=== PATIENT | female | born 1955 | race Caucasian/White ===

== ENCOUNTER → 2020-10-25 15:25 | Outpatient (CLI) | payer MEDICARE, SELFPAY ==
[2020-10-25 16:52] LABS: Alanine Aminotransferase 16 U/L (12-78); Albumin Level 4.3 g/dl (3.5-5.0); Albumin/Globulin Ratio 1.4 (1.1-1.8); Alkaline Phosphatase 134 U/L (38-126); Anion Gap 9.9 mEq/L (5-15); Aspartate Amino Transferase 30 U/L (14-36); Basophils % 0.7 % (0.1-2.0); Bilirubin,Total 0.4 mg/dl (0.2-1.3); Blood Urea Nitrogen 8 mg/dl (7-17); Calcium 9.5 mg/dl (8.4-10.2); Carbon Dioxide 30 mmol/L (22.0-30.0); Chloride 103 mmol/L (98-107); Chol/HDL Ratio 3.9 (1-3.5); Cholesterol 187 mg/dl (140-200); Eosinophils # 0.3 K/mm3 (0.0-0.4); Eosinophils % 4.2 % (0.1-12.0); Estimated Glomerular Filt Rate 84 ml/min (>60); GFR (African American) 102 ML/MIN (>60); Glucose 102 mg/dl (74-100); HDL Cholesterol 48 mg/dl (40-60); Hematocrit 42.1 % (37.0-47.0); Hemoglobin 13.4 g/dL (12.2-16.2); Lymphocytes # 1.7 K/mm3 (0.7-4.5); Lymphocytes % 25.9 % (10-50); Mean Corpuscular HGB Conc 31.9 g/dL (31.8-35.4); Mean Corpuscular Hemoglobin 27.9 pg (27.0-31.2); Mean Corpuscular Volume 87.6 fl (81-99); Monocytes # 0.4 K/mm3 (0.1-1.0); Monocytes % 6.7 % (1.7-9.3); Neutrophils # 4.1 K/mm3 (1.8-7.8); Neutrophils % 62.5 % (37.0-80.0); Platelet Count 345 K/mm3 (142-424); Potassium 4.9 mmoL/L (3.5-5.1); Red Cell Distribution Width 13.6 % (11.5-17.5); Sodium 138 mmol/L (136-145); Total Protein,Serum 7.3 g/dl (6.3-8.2); Triglycerides 155 mg/dl (30-150); VLDL Cholesterol 31 mg/dL (0-40); White Blood Count 6.6 K/mm3 (4.8-10.8)
[2020-10-25 17:03] LABS: Direct LDL Cholesterol 102.76 mg/dL (100-129)
[2020-10-25 17:22] LABS: Thyroid Stimulating Hormone 0.57 uIU/mL (0.465-4.68)
== END ==
PROVIDERS: Visit Provider Nurse Practitioner Family
DX: E03.9 Hypothyroidism, unspecified (principal); E78.5 Hyperlipidemia, unspecified; I10 Essential (primary) hypertension; R53.83 Other fatigue; F32.9 Major depressive disorder, single episode, unspecified
CPT/HCPCS: 80053; 80061; 84436; 84443; 85025

== ENCOUNTER → 2020-10-28 17:16 | Outpatient (CLI) | payer MEDICARE, SELFPAY ==
[2020-10-28 19:33] LABS: Hemoglobin A1C 5.9 % (4.0-6.0)
== END ==
PROVIDERS: Visit Provider Nurse Practitioner Family
DX: R73.09 Other abnormal glucose (principal)
CPT/HCPCS: 83036

== ENCOUNTER → 2020-11-04 08:41 | Outpatient (CLI) | payer MEDICARE, SELFPAY ==
--- NOTE | 2020-11-04 08:42 | MM_ITS ---
PROCEDURE: MM DIG SCREENING MAMM BI W/CAD Digital Breast Tomosynthesis Included CLINICAL INDICATION: breast ca screening There is no personal or family history of breast cancer. COMPARISON: MG MAMMO SCREENING DIGITAL TOMOSYNTHESIS BILATERAL W CAD from 05/21/2016 MG MAMMO SCREENING DIGITAL TOMOSYNTHESIS BILATERAL W CAD from 05/24/2017 outside films TECHNIQUE: Standard CC and MLO images and 3D Tomosynthesis was obtained. R2 CAD reviewed. FINDINGS: Moderate scattered fibroglandular densities are seen in both breast and the findings are bilateral and symmetrical. There are couple of benign-appearing microcalcifications left breast. There are 2 mole markers right breast and a single mole marker left breast. There is no suspicious lesion and no suspicious microcalcifications. IMPRESSION: Fibrofatty parenchyma with no suspicious lesions seen BI-RAD Category: 2 Benign Finding(s) FOLLOW-UP: 1YR 1 Year Follow-up (A letter has been sent to the patient regarding results of the study.) Dictated by: Dr. Eugenio Campuzano MD 11/22/2020 08:43 Dr. Eugenio Campuzano MD in [place] 11/22/2020 08:43
== END ==
PROVIDERS: PCP Nurse Practitioner Family; Visit Provider Nurse Practitioner Family
DX: Z12.31 Encounter for screening mammogram for malignant neoplasm of breast (principal)
CPT/HCPCS: 77063; 77067

== ENCOUNTER → 2021-03-03 17:17 | Outpatient (CLI) | payer MEDICARE, SELFPAY ==
[2021-03-03 17:53] LABS: Basophils # 0.1 K/mm3 (0-0.2); Basophils % 0.4 % (0.1-2.0); Eosinophils # 0.1 K/mm3 (0.0-0.4); Eosinophils % 0.5 % (0.1-12.0); Hematocrit 38.8 % (37.0-47.0); Hemoglobin 12.7 g/dL (12.2-16.2); Lymphocytes # 1.5 K/mm3 (0.7-4.5); Lymphocytes % 10.3 % (10-50); Mean Corpuscular HGB Conc 32.8 g/dL (31.8-35.4); Mean Corpuscular Hemoglobin 27.7 pg (27.0-31.2); Mean Corpuscular Volume 84.5 fl (81-99); Monocytes # 0.8 K/mm3 (0.1-1.0); Monocytes % 5.4 % (1.7-9.3); Neutrophils # 11.9 K/mm3 (1.8-7.8); Neutrophils % 83.4 % (37.0-80.0); Platelet Count 300 K/mm3 (142-424); Red Blood Count 4.59 M/mm3 (4.20-5.40); Red Cell Distribution Width 13.2 % (11.5-17.5); White Blood Count 14.3 K/mm3 (4.8-10.8)
[2021-03-03 18:39] LABS: Erythrocyte Sedimentation Rate 26 mm/hr (0-30)
== END ==
PROVIDERS: Visit Provider Emergency Medicine
DX: R53.83 Other fatigue (principal); F32.9 Major depressive disorder, single episode, unspecified
CPT/HCPCS: 85025; 85651

== ENCOUNTER → 2021-12-11 09:37 | Outpatient (CLI) | payer MEDICARE, SELFPAY ==
[2021-12-11 10:01] LABS: Basophils # 0.1 K/mm3 (0-0.2); Basophils % 1.7 % (0.1-2.0); Eosinophils # 0.2 K/mm3 (0.0-0.4); Eosinophils % 3.6 % (0.1-12.0); Hematocrit 40.9 % (37.0-47.0); Hemoglobin 13.4 g/dL (12.2-16.2); Lymphocytes # 1.5 K/mm3 (0.7-4.5); Mean Corpuscular HGB Conc 32.7 g/dL (31.8-35.4); Mean Corpuscular Hemoglobin 28.3 pg (27.0-31.2); Mean Corpuscular Volume 86.4 fl (81-99); Mean Platelet Volume 7.8 fl (7.4-10.4); Monocytes # 0.4 K/mm3 (0.1-1.0); Neutrophils # 4.3 K/mm3 (1.8-7.8); Neutrophils % 65.7 % (37.0-80.0); Platelet Count 317 K/mm3 (142-424); Red Blood Count 4.74 M/mm3 (4.20-5.40); Red Cell Distribution Width 13.9 % (11.5-17.5); White Blood Count 6.6 K/mm3 (4.8-10.8)
[2021-12-11 10:58] LABS: Alanine Aminotransferase 24 U/L (12-78); Albumin Level 4.3 g/dl (3.5-5.0); Albumin/Globulin Ratio 1.5 (1.1-1.8); Alkaline Phosphatase 133 U/L (38-126); Anion Gap 11.8 mEq/L (5-15); Aspartate Amino Transferase 35 U/L (14-36); Bilirubin,Total 0.7 mg/dl (0.2-1.3); Blood Urea Nitrogen 10 mg/dl (7-17); Carbon Dioxide 27 mmol/L (22.0-30.0); Chloride 102 mmol/L (98-107); Chol/HDL Ratio 3.9 (1-3.5); Cholesterol 197 mg/dl (140-200); Estimated Glomerular Filt Rate 100 ml/min (>60); GFR (African American) 121 ML/MIN (>60); Globulin 2.8 g/dL (1.3-3.2); Glucose 109 mg/dl (74-100); HDL Cholesterol 51 mg/dl (40-60); Potassium 4.8 mmoL/L (3.5-5.1); Sodium 136 mmol/L (136-145); Total Protein,Serum 7.1 g/dl (6.3-8.2); Triglycerides 197 mg/dl (30-150); VLDL Cholesterol 39 mg/dL (0-40)
[2021-12-11 11:09] LABS: Direct LDL Cholesterol 103.14 mg/dL (100-129)
[2021-12-11 11:29] LABS: Thyroid Stimulating Hormone 0.57 uIU/mL (0.465-4.68)
[2021-12-11 12:59] LABS: Hemoglobin A1C 6.3 % (4.0-6.0)
== END ==
PROVIDERS: Visit Provider Physician Assistant
DX: E03.9 Hypothyroidism, unspecified (principal); F32.9 Major depressive disorder, single episode, unspecified; I10 Essential (primary) hypertension; R73.9 Hyperglycemia, unspecified
CPT/HCPCS: 36415; 80053; 80061; 83036; 84443; 85025

== ENCOUNTER 2021-12-29 12:06 | Emergency (ER) | payer MEDICARE, SELFPAY ==
[2021-12-29 14:08] VITALS: BP 143/63; PULSE 72; RESP 20; TEMP 36.6; O2SAT 97; BMI 33.6
[2021-12-29 14:15] LABS: Apearance,Urine Clear (Clear); Bilirubin,Urine Negative (Negative); Blood, Urine Negative (Negative); Color,Urine Yellow (Yellow); Glucose,Urine (UA) Negative (Negative); Ketones,Urine Negative (Negative); PH,Urine 6.5 (5.0-8.5); Protein,Urine Negative (Negative); UTC Leukocyte Esterase,Urine Negative (Negative); UTC Nitrate,Urine Negative (Negative); Urobilinogen,Urine 0.2 EU/dl (0.2)
--- NOTE | 2021-12-29 14:29 | HMH.EDUTC ---
[facility] [place] Clinical Impression: Yeast infection, Seborrheic dermatitis of scalp Disposition: Home, Self-Care Condition on Discharge: Good Instructions: Vaginal Yeast Infection, Seborrheic Dermatitis Additional Instructions: Take the medication as directed. Follow up with your primary care physician. GO TO THE ER FOR ANY WORSENING SYMPTOMS Prescriptions: Fluconazole [Diflucan 150mg tab] 150 mg PO ONCE #1 tab Transmission Status: Received by [facility] #[id number] Ketoconazole 1 applic TP BID #100 g Transmission Status: Received by [facility] #[id number] Referrals: Svetlana Santana PA [Primary Care Provider] - Time of Disposition: 15:07 Medical Decision Making - Medical Records Medical records reviewed: No: I reviewed the patient's medical records. - Cyril Inquiry Pt receiving controlled substance: No Vital Signs: 12/29/21 14:08 12/29/21 15:09 Temperature 97.9 F 97.9 F Temperature Source Oral Pulse Rate 72 Pulse Rate [Left] 72 Respiratory Rate 20 20 Blood Pressure 143/63 H Blood Pressure [Right Arm] 143/63 H Blood Pressure Mean [Right Arm] 89 02 Sat by Pulse Oximetry 97 - Lab Data Lab results reviewed: Yes: I reviewed the patient's lab results. Lab Results 12/29/21 14:13: Urine Color Yellow, Urine Appearance Clear, Urine pH 6.5, Ur Specific [place] 1.010, Urine Protein Negative, Urine Glucose (UA) Negative, Urine Ketones Negative, Urine Blood Negative, Urine Nitrate Negative, Urine Bilirubin Negative, Urine Urobilinogen 0.2, Ur Leukocyte Esterase Negative Orders (Tests/Meds): ORDERS Category Date Time Status Urine Culture Stat Micro 12/29/21 14:13 Results [facility] [place] - General Stated complaint: possible kidney inf/ urinary pain Time Seen by Provider: 12/29/21 14:29 Mode of Arrival: Ambulatory Source of Information: Patient Limitations: No Limitations Description of Symptoms (Recalled from Triage Doc. by RN): pt c/o kidney infection that started 2 days ago. pt was able to provide a urine sample. states she also has bumps on her head that have been there for a year. HEENT Symptoms (Recalled from RN notes): No Resp Symptoms (Recalled from RN notes): No Skin Symptoms (Recalled from RN notes): No MS Symptoms (Recalled from RN notes): No Functional Status (Recalled from RN notes): wnl - History of Present Illness Provider Complaint: She states that she has been having irritation around her vaginal area and some burning when she urinates for the past 3 days. She believes she has a yeast infection. - Related Data Previous Rx's Medication Instructions Recorded cephalexin 500 mg capsule 500 mg PO BID #14 cap 03/03/21 coenzyme Q10 200 mg capsule 200 mg PO DAILY #30 cap 03/03/21 prednisone 20 mg tablet 20 mg PO BID #10 tab 03/03/21 albuterol sulfate 90 mcg/actuation See Rx Instructions .ROUTE 11/14/21 aerosol inhaler .COMPLEX #8.5 g amitriptyline 25 mg tablet See Rx Instructions .ROUTE 12/10/21 .COMPLEX #90 tab amlodipine 5 mg tablet See Rx Instructions .ROUTE 12/10/21 .COMPLEX #90 tab fluoxetine 20 mg capsule See Rx Instructions .ROUTE 12/10/21 .COMPLEX #90 cap levothyroxine 75 mcg tablet 75 mcg PO DAILY #30 tab 12/10/21 rosuvastatin 5 mg tablet See Rx Instructions .ROUTE 12/10/21 .COMPLEX #90 tab Fluconazole [Diflucan 150mg tab] 150 mg PO ONCE #1 tab 12/29/21 Ketoconazole 1 applic TP BID #100 g 12/29/21 Allergies Allergy/AdvReac Type Severity Reaction Status Date / Time Penicillins Allergy Verified 12/29/21 14:11 - Worker's Comp Is this a Worker's Comp case?: No [facility] History - Hepatitis A Screen Attestation statement:: This patient has been screened for Hepatitis A risk factors. I have reviewed the patient's past medical history: Yes Other Surgeries: Yes: No Previous Surgery Amputation: No Fractures: No - Social History Smoking Status: Former smoker Alcohol Intake: never Substance Use Type: denies us
[2021-12-29 15:09] VITALS: BP 143/63; PULSE 72; RESP 20; TEMP 36.6
== END 2021-12-29 15:15 | disposition home or self-care (01) ==
PROVIDERS: Emergency Provider Nurse Practitioner Family; PCP Physician Assistant
DX: B37.3 Candidiasis of vulva and vagina (principal); L21.9 Seborrheic dermatitis, unspecified
CPT/HCPCS: 81003; 87086; 99213; G0463

== ENCOUNTER → 2022-10-20 15:20 | Outpatient (CLI) | payer MEDICARE, SELFPAY ==
[2022-10-20 16:04] LABS: Basophils # 0.1 K/mm3 (0-0.2); Eosinophils # 0.3 K/mm3 (0.0-0.4); Eosinophils % 4.1 % (0.1-12.0); Hematocrit 41.8 % (37.0-47.0); Hemoglobin 12.9 g/dL (12.2-16.2); Lymphocytes # 1.7 K/mm3 (0.7-4.5); Lymphocytes % 25.9 % (10-50); Mean Corpuscular Hemoglobin 26.4 pg (27.0-31.2); Mean Corpuscular Volume 85.4 fl (81-99); Monocytes # 0.4 K/mm3 (0.1-1.0); Monocytes % 6.3 % (1.7-9.3); Neutrophils # 4.2 K/mm3 (1.8-7.8); Neutrophils % 62.6 % (37.0-80.0); Platelet Count 396 K/mm3 (142-424); Red Blood Count 4.89 M/mm3 (4.20-5.40); Red Cell Distribution Width 14.1 % (11.5-17.5); White Blood Count 6.7 K/mm3 (4.8-10.8)
[2022-10-20 16:10] LABS: Alanine Aminotransferase 18 U/L (12-78); Albumin Level 4.1 g/dl (3.5-5.0); Albumin/Globulin Ratio 1.6 (1.1-1.8); Alkaline Phosphatase 130 U/L (38-126); Anion Gap 7.4 mEq/L (5-15); Aspartate Amino Transferase 28 U/L (14-36); Bilirubin,Total 0.4 mg/dl (0.2-1.3); Blood Urea Nitrogen 9 mg/dl (7-17); Calcium 8.9 mg/dl (8.4-10.2); Carbon Dioxide 28 mmol/L (22.0-30.0); Chloride 105 mmol/L (98-107); Chol/HDL Ratio 3.6 (1-3.5); Cholesterol 160 mg/dl (140-200); Estimated Glomerular Filt Rate 72 ml/min (>60); GFR (African American) 87 ML/MIN (>60); Globulin 2.6 g/dL (1.3-3.2); Glucose 113 mg/dl (74-100); HDL Cholesterol 45 mg/dl (40-60); Potassium 4.4 mmoL/L (3.5-5.1); Sodium 136 mmol/L (136-145); Total Protein,Serum 6.7 g/dl (6.3-8.2); Triglycerides 140 mg/dl (30-150); VLDL Cholesterol 28 mg/dL (0-40)
[2022-10-20 16:22] LABS: Direct LDL Cholesterol 87.72 mg/dL (100-129)
[2022-10-21 19:54] LABS: Intact Parathyroid Hormone 70.8 pg/mL (7.5-53.5)
[2022-10-21 20:20] LABS: Hemoglobin A1C 6.1 % (4.0-6.0)
== END ==
PROVIDERS: PCP Physician Assistant; Visit Provider Physician Assistant
DX: E03.9 Hypothyroidism, unspecified (principal); I10 Essential (primary) hypertension; R73.09 Other abnormal glucose
CPT/HCPCS: 80053; 80061; 83036; 83970; 84443; 85025

== ENCOUNTER → 2022-10-21 07:12 | Outpatient (CLI) | payer MEDICARE, SELFPAY | PROVIDERS: PCP Physician Assistant; Visit Provider Physician Assistant | DX: E03.9 Hypothyroidism, unspecified (principal); I10 Essential (primary) hypertension; R73.09 Other abnormal glucose | CPT/HCPCS: 83036; 83970 ==

== ENCOUNTER → 2022-10-23 08:04 | Outpatient (CLI) | payer MEDICARE, SELFPAY ==
--- NOTE | 2022-10-23 08:04 | XR_ITS ---
FINAL REPORT TECHNIQUE: Bone densitometry calculations of the lumbar spine and left hip were obtained. CLINICAL HISTORY: . post menopausal screening FINDINGS: Using L1-4, the bone mineral density of the spine is 0.775 g/cm2, corresponding to T-score of -2.5. Using the left hip, the bone mineral density of the femoral neck is 0.674 g/cm2, corresponding to a T-score of -1.6. NOTE: T-score: Standard deviation compared with peak bone mass of young adult mean. *Following the recommendations of the International Society of Bone Densitometry, classification of hip BMD is based on the lower of two T-scores; total hip or femoral neck. IMPRESSION: Osteoporosis: Lowest T-score is at or below -2.5. This patient's T-score meets the World Health Organization criteria for osteoporosis. FRAX is not reported because some of the T-scores are at or below -2.5. Reviewed, Interpreted and Dictated by Curtis Carter III, MD Transcribed by Rebecca Callaway Authenticated and [facility]
--- NOTE | 2022-10-23 08:04 | MM_ITS ---
PROCEDURE INFORMATION: Exam: MG Bilateral Screening 3D Mammography Exam date and time: 10/23/2022 8:22 AM Age: 66 years old Clinical indication: Screening examination TECHNIQUE: Imaging protocol: Bilateral Screening tomosynthesis and 2D mammography including computer-aided detection (CAD) when performed. COMPARISON: 1. MG MM DIG SCREENING MAMM BI W/CAD 11/04/2020 9:23 AM 2. MG MAMMO SCREENING DIGITAL TOMOSYNTHESIS BILATERAL W CAD 05/24/2017 2:59 PM FINDINGS: MAMMOGRAPHY: Breast composition: There are scattered areas of fibroglandular density. Mass: None. Architectural distortion: None. Calcifications: No suspicious calcifications. Asymmetric density: None. Skin thickening: None. Axillary adenopathy: None. IMPRESSION: No mammographic evidence of malignancy. Annual screening is recommended unless otherwise clinically indicated. ASSESSMENT: BI-RADS Category 1: Negative
== END ==
PROVIDERS: PCP Physician Assistant; Visit Provider Physician Assistant
DX: Z12.31 Encounter for screening mammogram for malignant neoplasm of breast (principal); Z78.0 Asymptomatic menopausal state
CPT/HCPCS: 77063; 77067; 77080

== ENCOUNTER → 2023-03-19 23:11 | Outpatient (CLI) | payer MEDICARE, SELFPAY ==
[2023-03-19 20:10] LABS: Adenovirus,PCR Not Detected (NotDetected); Bordetella Pertussis Not Detected (NotDetected); Chlamydophila Pneumoniae, PCR Not Detected (NotDetected); Coronavirus 19, PCR Not Detected (NotDetected); Coronavirus 229E Not Detected (NotDetected); Coronavirus NL63 Not Detected (NotDetected); Coronavirus OC43 Not Detected (NotDetected); Coronovirus HKU1,PCR Not Detected (NotDetected); Human Metapneumovirus Not Detected (NotDetected); Influenza A, PCR Not Detected (NotDetected); Influenza AH1, 2009 Not Detected (NotDetected); Influenza AH1, PCR Not Detected (NotDetected); Influenza AH3,PCR Not Detected (NotDetected); Influenza B, PCR Not Detected (NotDetected); Mycoplasma Pneumoniae, PCR Not Detected (NotDetected); Parainfluenza 1, PCR Not Detected (NotDetected); Parainfluenza 2, PCR Not Detected (NotDetected); Parainfluenza 3, PCR Not Detected (NotDetected); Parainfluenza 4, PCR Not Detected (NotDetected); Respiratory Syncytial Virus Not Detected (NotDetected); Rhinovirus/Enterovirus Detected (NotDetected)
== END ==
PROVIDERS: PCP Nurse Practitioner Family; Visit Provider Nurse Practitioner Family
DX: J32.9 Chronic sinusitis, unspecified (principal); R06.89 Other abnormalities of breathing; R50.9 Fever, unspecified; B34.1 Enterovirus infection, unspecified
CPT/HCPCS: 87581; 87632; 87798

== ENCOUNTER 2024-02-17 10:49 | Outpatient (CLI) | payer MEDICARE, SELFPAY ==
[2024-02-17 19:01] LABS: Basophils # 0.1 K/mm3 (0-0.2); Basophils % 0.8 % (0.1-2.0); Eosinophils # 0.3 K/mm3 (0.0-0.4); Eosinophils % 3.1 % (0.1-12.0); Hematocrit 40.6 % (37.0-47.0); Hemoglobin 13.3 g/dL (12.2-16.2); Lymphocytes % 24.4 % (10-50); Mean Corpuscular HGB Conc 32.7 g/dL (31.8-35.4); Mean Corpuscular Hemoglobin 27.6 pg (27.0-31.2); Mean Corpuscular Volume 84.5 fl (81-99); Mean Platelet Volume 9.1 fl (7.4-10.4); Monocytes # 0.6 K/mm3 (0.1-1.0); Monocytes % 7.3 % (1.7-9.3); Neutrophils # 5.2 K/mm3 (1.8-7.8); Neutrophils % 64.4 % (37.0-80.0); Platelet Count 365 K/mm3 (142-424); Red Blood Count 4.81 M/mm3 (4.20-5.40); Red Cell Distribution Width 14.9 % (11.5-17.5)
[2024-02-17 19:29] LABS: Chloride 104 mmol/L (98-107); Potassium 4.3 mmoL/L (3.5-5.1); Sodium 136 mmol/L (136-145)
[2024-02-17 19:31] LABS: Alanine Aminotransferase 22 U/L (12-78); Aspartate Amino Transferase 30 U/L (14-36); Blood Urea Nitrogen 12 mg/dl (7-17); Estimated Glomerular Filt Rate 83 ml/min (>60); GFR (African American) 100 ML/MIN (>60)
[2024-02-17 19:32] LABS: Albumin Level 4.1 g/dl (3.5-5.0); Albumin/Globulin Ratio 1.5 (1.1-1.8); Alkaline Phosphatase 128 U/L (38-126); Anion Gap 12.3 mEq/L (5-15); Bilirubin,Total 0.2 mg/dl (0.2-1.3); Calcium 9.1 mg/dl (8.4-10.2); Carbon Dioxide 24 mmol/L (22.0-30.0); Chol/HDL Ratio 4.4 (1-3.5); Cholesterol 189 mg/dl (140-200); Globulin 2.8 g/dL (1.3-3.2); Glucose 116 mg/dl (74-100); HDL Cholesterol 43 mg/dl (40-60); Total Protein,Serum 6.9 g/dl (6.3-8.2); Triglycerides 246 mg/dl (30-150); VLDL Cholesterol 49 mg/dL (0-40)
[2024-02-17 19:43] LABS: Direct LDL Cholesterol 106.13 mg/dL (100-129)
[2024-02-17 20:00] LABS: Thyroid Stimulating Hormone 0.58 uIU/mL (0.465-4.68)
[2024-02-18 12:36] LABS: HIV (1&2) Antibody Rapid NON REACTIVE
[2024-02-19 07:38] LABS: HCV Ab Non Reactive (Non Reactive)
== END 2024-02-17 23:59 | disposition home or self-care (01) ==
LOC: LAB.DROPOF 02-18 10:50
PROVIDERS: PCP Physician Assistant; Visit Provider Physician Assistant
DX: M81.0 Age-related osteoporosis without current pathological fracture (principal); E34.9 Endocrine disorder, unspecified; F32.9 Major depressive disorder, single episode, unspecified; E03.9 Hypothyroidism, unspecified; I10 Essential (primary) hypertension; E78.49 Other hyperlipidemia; E66.9 Obesity, unspecified; Z68.32 Body mass index [BMI] 32.0-32.9, adult
CPT/HCPCS: 80050; 80053; 80061; 84443; 85025

== ENCOUNTER 2024-05-12 08:56 | Outpatient (CLI) | payer MEDICARE, SELFPAY ==
[2024-05-12 09:01] LABS: Microscopic, Urine URINE MICROSCOPIC (MICROSCOPIC)
[2024-05-12 09:22] LABS: Appearance,Urine CLEAR (Clear); Bilirubin,Urine Negative (Negative); Blood, Urine TRACE-I (Negative); Color,Urine YELLOW (Yellow); Glucose,Urine (UA) Negative (Negative); Ketones,Urine Negative (Negative); Leukocyte Esterase,Urine Negative (Negative); Nitrate,Urine Negative (Negative); Protein,Urine Negative (Negative); Specific Gravity, Urine <= 1.005 (1.005-1.030); Urobilinogen,Urine 0.2 EU/dl (0.2)
[2024-05-12 09:33] LABS: Bacteria,Urine Trace /lpf; RBC,Urine Occasional #/hpf (0-3)
== END 2024-05-12 23:59 | disposition home or self-care (01) ==
LOC: LAB 08:58
PROVIDERS: PCP Family Medicine; Visit Provider Family Medicine
DX: R82.90 Unspecified abnormal findings in urine (principal); R35.0 Frequency of micturition
CPT/HCPCS: 81001; 87086

== ENCOUNTER 2024-10-25 16:46 | Outpatient (CLI) | payer MEDICARE, SELFPAY ==
[2024-10-25 19:52] LABS: Basophils # 0.1 K/mm3 (0-0.2); Basophils % 0.7 % (0.1-2.0); Eosinophils # 0.4 K/mm3 (0.0-0.4); Eosinophils % 4.3 % (0.1-12.0); Hematocrit 43.2 % (37.0-47.0); Hemoglobin 13.3 g/dL (12.2-16.2); Lymphocytes # 2.3 K/mm3 (0.7-4.5); Mean Corpuscular HGB Conc 30.8 g/dL (31.8-35.4); Mean Corpuscular Hemoglobin 25.7 pg (27.0-31.2); Mean Corpuscular Volume 83.6 fl (81-99); Mean Platelet Volume 10.2 fl (7.4-10.4); Monocytes # 0.7 K/mm3 (0.1-1.0); Monocytes % 7.8 % (1.7-9.3); Platelet Count 394 K/mm3 (142-424); Red Blood Count 5.17 M/mm3 (4.20-5.40); Red Cell Distribution Width 15.4 % (11.5-17.5); White Blood Count 8.4 K/mm3 (4.8-10.8)
[2024-10-25 20:00] LABS: Creatinine,Urine Random 106 mg/dL (Not Estab.)
[2024-10-25 20:05] LABS: Microalbumin/Creatinine Ratio 9.7
[2024-10-25 20:11] LABS: Alanine Aminotransferase 23 U/L (12-78); Albumin Level 4.9 g/dl (3.5-5.0); Alkaline Phosphatase 125 U/L (38-126); Anion Gap 12.4 mEq/L (5-15); Aspartate Amino Transferase 31 U/L (14-36); Bilirubin,Total 0.4 mg/dl (0.2-1.3); Blood Urea Nitrogen 9 mg/dl (7-17); Calcium 9.4 mg/dl (8.4-10.2); Carbon Dioxide 26 mmol/L (22.0-30.0); Chloride 102 mmol/L (98-107); Chol/HDL Ratio 3.8 (1-3.5); Cholesterol 201 mg/dl (140-200); Estimated Glomerular Filt Rate 83 ml/min (>60); GFR (African American) 100 ML/MIN (>60); Globulin 2.4 g/dL (1.3-3.2); Glucose 87 mg/dl (74-100); HDL Cholesterol 53 mg/dl (40-60); Potassium 4.4 mmoL/L (3.5-5.1); Sodium 136 mmol/L (136-145); Total Protein,Serum 7.3 g/dl (6.3-8.2); Triglycerides 206 mg/dl (30-150); VLDL Cholesterol 41 mg/dL (0-40)
[2024-10-25 20:26] LABS: Direct LDL Cholesterol 102.75 mg/dL (100-129)
[2024-10-25 20:34] LABS: 25-OH Vitamin D, Total 39.4 ng/mL (30-100)
[2024-10-25 20:38] LABS: Hemoglobin A1C 6.2 % (4.0-6.0)
== END 2024-10-25 23:59 | disposition home or self-care (01) ==
LOC: LAB.DROPOF 10-26 16:47
PROVIDERS: PCP Internal Medicine; Visit Provider Internal Medicine
DX: E66.9 Obesity, unspecified (principal); R79.89 Other specified abnormal findings of blood chemistry; F32.9 Major depressive disorder, single episode, unspecified; E03.9 Hypothyroidism, unspecified; E78.49 Other hyperlipidemia; I10 Essential (primary) hypertension
CPT/HCPCS: 80053; 80061; 82043; 82306; 82570; 83036; 85025

== ENCOUNTER 2024-11-21 13:30 | Outpatient (CLI) | payer MEDICARE, SELFPAY | END 2024-11-21 23:59 | disposition home or self-care (01) | LOC: LAB.DROPOF 11-22 12:05 | PROVIDERS: PCP Nurse Practitioner; Visit Provider Nurse Practitioner | DX: R35.0 Frequency of micturition (principal); R30.0 Dysuria | CPT/HCPCS: 87086 ==

== ENCOUNTER 2024-12-11 11:21 | Outpatient (CLI) | payer MEDICARE, SELFPAY | END 2024-12-11 23:59 | disposition home or self-care (01) | LOC: LAB.DROPOF 12-12 15:15 | PROVIDERS: PCP Student in an Organized Health Care Education/Training Program; Visit Provider Student in an Organized Health Care Education/Training Program | DX: R30.0 Dysuria (principal) | CPT/HCPCS: 87086 ==

== ENCOUNTER 2025-03-26 15:17 | Outpatient (CLI) | payer MEDICARE, SELFPAY ==
--- OUTSIDE RECORDS SUMMARY | 2025-03-26 15:19 | XMS_ITS | Clinical Summary ---
Author Organization [facility] Address [address] [place] [address] Care Team Providers Care Diagrammer Name Role Phone Bianka Nolasco MD Primary Care Provide r Allergies Active Allergy Reactions Criticality Noted Date Comments Amlodipine 12/23/2015 Leg swelling Penicillins 10/03/2015 Medications aspirin 325 MG tablet Take by mouth. Active budesonide-formote rol (SYMBICORT) 160-4.5 MCG/ACT inhalerIndications :COPD with exacerbation Inhale 2 puffs 2 (Two) Times a Day. 10.2 inhaler 6 Active valACYclovir (VALTREX) 1000 MG tabletIndications: Herpes labialis take 2 tablets by mouth every 12 hours for 2 DOSES AT ONSET OF FEVER BLISTER 40 tablet 5 8 Active furosemide (LASIX) 20 MG tabletIndications: Bilateral lower extremity edema,Essential hypertension take 1 tablet by mouth once daily if needed 90 tablet 1 9 Active amLODIPine (NORVASC) 5 MG tablet TAKE 1 TABLET BY MOUTH EVERY DAY 90 tablet 1 0 Active FLUoxetine (PROzac) 20 MG capsuleIndications :Situational depression TAKE 1 CAPSULE BY MOUTH ONCE DAILY 90 capsule 1 0 Active levothyroxine (SYNTHROID, LEVOTHROID) 75 MCG tabletIndications: Adult hypothyroidism TAKE 1 TABLET BY MOUTH EVERY DAY 90 tablet 1 0 Active amitriptyline (ELAVIL) 25 MG tablet TAKE 1 TABLET BY MOUTH EVERY DAY AT BEDTIME 90 tablet 1 0 Active rosuvastatin (CRESTOR) 5 MG tabletIndications: Mixed hyperlipidemia TAKE 1 TABLET BY MOUTH ONCE DAILY 30 tablet 1 Active albuterol sulfate HFA 108 (90 Base) MCG/ACT inhalerIndications :COPD, mild INHALE 2 PUFFS EVERY 4 HOURS HOURS NEEDED FOR WHEEZING OR SHORTNESS OF BREATH 18 g 1 Active fluticasone (FLONASE) 50 MCG/ACT nasal spray SHAKE LIQUID AND USE 2 SPRAYS IN EACH NOSTRIL EVERY DAY 16 g 5 2 Active Active Problems Problem Noted Date Diagnosed Date Adult hypothyroidism 03/04/2017 Myalgia 02/17/2017 Chronic fatigue 02/17/2017 Gastroesophageal reflux disease without esophagi tis 02/17/2017 Screen for colon cancer 02/17/2017 Situational depression 07/08/2016 Overweight (BMI 25.0-29.9) 04/07/2016 Allergic conjunctivitis of both eyes 01/30/2016 COPD, mild 01/30/2016 Prediabetes 12/23/2015 Herpes labialis 10/22/2015 Mixed hyperlipidemia 10/22/2015 Essential hypertension 10/22/2015 Osteoporosis 10/22/2015 Difficulty sleeping 10/22/2015 Resolved Problems Problem Noted Date Diagnosed Date Resolved Date URI, acute 08/27/2016 02/17/2017 Pneumonia 10/22/2015 12/23/2015 Immunizations Immunization Administration Dates Next Due Fluzone Quad >6mos (Multi-dose) 05/03/2018 Shingrix 05/03/2018 Family History Medical History Relation Name Comments Heart attack Father myocardial infa rction Hypertension Father Other Father cardiac disorde r Cancer Mother malignant neopl asm Breast cancer Neg Hx Relation Name Status Comments Father Mother Social History Tobacco Use Types Packs/Day Years Used Date Smoking Tobacco: Former Cigarettes 1.5 45 0 08/30/1970 - 08/30/2015 Alcohol Use Standard Drinks/Week Comments Yes 0 (1 standard drink = 0.6 oz pur e alcohol) Social Abuse Screen Answer Date Recorded Unsafe at Home or Work/School Not on file Feels Threatened by Someone? Not on file 06/2023 Does Anyone Keep You from Co ntacting Others or Doint Things Outside the Home? Not on file 06/09/2023 Physical Sign of Abuse Present Not on file 1 Housing Stability Answer Date Recorded Current Living Arrangements Not on file 05/30 Potentially Unsafe Housing Conditions Not on kristine e 06/09/2023 Family and Community Support Answer Agustin e Recorded Help with Day-to-Day Activities Not on file 06/09/2023 Lonely or Isolated Not on file 06/09/2023 Employment Answer Date Recorded Do you want help finding or keeping work or a chloe b? Not on file 06/09/2023 Disabilities Answer Date Recorded Concentrating, Remembering, or Making Decisions Difficulty Not on file 06/09/2023 Doing Errands Independently Difficulty Not on fi le 06/09/2023 Education Answer Date Recorded Help with school or training? Not on file Preferred Language Not on file 06/09/2023 Comments Unknown Sex and Gender Information Value Date Recorded Sex Assigned at Not on file Legal Sex Female 12:37 PM EDT Gender Identity Not on file Sexual Orientation Not on file Last Filed Vital Signs Vital Sign Reading Time Taken Comments Blood Pressure 96/70 09/22/2019 8:48 AM EST Pulse 74 09/22/2019 8:48 AM EST Temperature 36.6 C (97.8 F) 09/22/2019 8:48 AM EST Respiratory Rate 16 09/22/2019 8:48 AM EST Oxygen Saturation 98% 09/22/2019 8:48 AM EST Inhaled Oxygen Concentration - - Weight 83.6 kg (184 lb 3.2 oz) 09/22/2019 8:48 A M EST Height 160 cm (5' 3 ) 09/22/2019 8:48 AM EST Body Mass Index 32.63 09/22/2019 8:48 AM EST Plan of Treatment Health Maintenance Due Date Last Done Comments TDAP/TD VACCINES (1 - Tdap) 1974 COLON CANCER SCREENING 5 YEA R SIGMOIDOSCOPY 11/22/1999 CT COLONOGRAPHY 11/22/1999 FECAL OCCULT BLOOD TEST 11/22/1999 FIT Testing (1 year) 11/22/1999 ANNUAL PHYSICAL 10/22/2015 HEPATITIS C SCREENING 10/22/2015 Pneumococcal Vaccine 50+ (2 of 2 - PCV) 12/05/2016 12/06/2015 DXA SCAN 04/24/2017 04/24/2015, 04/24/2015 MAMMOGRAM 05/24/2019 05/24/2017, 05/01, 04/24/2015, Additional history exists LIPID PANEL 09/14/2020 09/14/2019, 12/2018, 04/27/2018, Additional history exists COLOGUARD 09/22/2022 09/22/2019 COVID-19 Vaccine (2023-2 5 season) 2024 INFLUENZA VACCINE 05/30/2025 07/31/2019, , 05/03/2018, Additional history exists COLONOSCOPY 03/10/2029 03/10/2019 (Decl ined), 05/05/2017 (Declined) COLORECTAL CANCER SCREENING 03/10/2029 LUNG CANCER SCREENING Discontinued 11/05/2015, 016 ZOSTER VACCINE Completed 05/03/2018, 08/30/2012 Procedures Procedure Name Priority Date/Time Associated Diagnosis Comments SCANNED - COLOGUARD 09/22/2019 LIPID PANEL WITH LDL/HDL RATIO Routine 09/14/2019 8:48 AM EST Mixed hyperlipidemia MAMMO SCREENING DIGITAL TOMOSYNTHESIS BILATERAL W CAD Routine 05/24/2017 3:03 PM EDT Visit for screening mammogram CT CHEST W CONTRAST Routine 11/05/2015 1 0:01 AM EST Pulmonary infiltrate HM DEXA SCAN Routine 04/24/2015 from Last 3 Months or Most Recently Relevant to Health Maintenance Results * SCANNED - COLOGUARD (09/22/2019) [facility] B[facility]OD ORDERABLES Final Re sult * Lipid Panel With LDL / HDL Ratio (09/14/2019 8:48 AM EST) Total Cholesterol 172 100 - 199 mg/dL [facility] Triglycerides 141 0 - 149 mg/dL [facility] HDL Cholesterol 49 >39 mg/dL [facility] VLDL Cholesterol 28 5 - 40 mg/dL [facility] LDL Cholesterol 95 0 - 99 mg/dL [facility] LDL/HDL Ratio 1.9 0.0 - 3.2 ratio [facility] Comment: LDL/HDL Ratio Men Women 1/2 Avg.Risk 1.0 1.5 Avg.Risk 3.6 3.2 2X Avg.Risk 6.2 5.0 3X Avg.Risk 8.0 6.1 Blood 09/14/2019 8:48 AM EST 09/14/2019 Narrative [facility] (AMBULATORY) - 09/16/2019 7:08 AM EST Performed at: [facility] - [facility] [address] [place] [id number] Hearing Care Professional: Gary Mercer PhD, Phone: [phone] Patient Fasting: Y Bianka Nolasco MD LAB BLOOD ORDERABLES Final Result [facility] [address] [place] [address], [facility] [address] [place] [address], * Mammo screening digital tomosynthesis bilateral w CAD (05/24/2017 3:03 PM EDT) Anatomical Region Laterality Modality Breast N/A Mammography 05/24/2017 5:29 PM EDT Impressions 05/24/2017 5:31 PM EDT Negative screening mammogram. BI-RADS CATEGORY 1: Negative Women over the age of 40 undergoing screening mammography are entered into a reminder system with target due date for the next mammogram. This report was finalized on 05/24/2017 5:[address] Bill Walker MD. Narrative 05/24/2017 5:31 PM EDT EXAM, 05/24/2017: 1. Bilateral digital screening mammogram with CAD. 2. Bilateral digital screening breast tomosynthesis. INDICATION: Routine screening. TECHNIQUE: Bilateral digital screening mammogram images were obtained and reviewed with CAD. Digital breast tomosynthesis images were also reviewed. COMPARISON: * Screening mammogram, 05/21/2016. FINDINGS: There are scattered areas of fibroglandular density. No significant change when compared with prior images. No mammographic evidence of malignancy. Recommend repeat screening mammogram in one year. Bianka Nolasco MD IMG MAMMOGRAPHY ORDER LIDIA Final Result * CT chest w contrast (11/05/2015 10:01 AM EST) Anatomical Region Laterality Modality Chest N/A Computed Tomogra phy 11/05/2015 10:1 2 AM EST Impressions 11/05/2015 10:20 AM EST 1. No acute abnormality within the chest. 2. Previous exam showed diffusely increased interstitial markings, engorged thoracic lymph nodes and tiny pleural effusions. Today, all of these findings have resolved. 3. Mild pulmonary emphysema. This report was finalized on 11/05/2015 10:[address] Bill Walker MD. Narrative 11/05/2015 10:[address] CHEST WITH CONTRAST, 11/05/2015: HISTORY: 59-year-old male referred for follow-up of pulmonary infiltrate and thoracic lymph node enlargement seen on prior exams. History of pneumonia. Former smoker. * Dx: Pulmonary infiltrate [R91.8 (ICD-10-CM)] TECHNIQUE: CT examination of the chest was performed with IV contrast using standard protocol. Radiation dose reduction techniques were utilized, including automated exposure control and exposure modulation based on body size. COMPARISON: CT chest, PE protocol, 09/16/2015. FINDINGS: The lungs are expanded and clear today. Diffusely increased interstitial markings throughout both lungs and hazy focal opacity in medial right midlung present on the previous study have cleared completely. Previous tiny pleural effusions have resolved. Additionally, previously demonstrated enlarged lymph nodes within the mediastinum and pulmonary amena are also normal in size today. There is no suspicious thoracic adenopathy. The findings suggest resolution of interstitial pulmonary edema with associated lymphatic engorgement. Mild centrilobular emphysema in the upper lobes. Normal caliber thoracic aorta. Limited images through the uppermost abdomen are unremarkable. Procedure Note Bill Walker MD - 11/05/2015 CT CHEST WITH CONTRAST, 11/05/2015: HISTORY: 59-year-old male referred for follow-up of pulmonary infiltrate and thoracic lymph node enlargement seen on prior exams. History of pneumonia. Former smoker. * Dx: Pulmonary infiltrate [R91.8 (ICD-10-CM)] TECHNIQUE: CT examination of the chest was performed with IV contrast using standard protocol. Radiation dose reduction techniques were utilized, including automated exposure control and exposure modulation based on body size. COMPARISON: CT chest, PE protocol, 09/16/2015. FINDINGS: The lungs are expanded and clear today. Diffusely increased interstitial markings throughout both lungs and hazy focal opacity in medial right midlung present on the previous study have cleared completely. Previous tiny pleural effusions have resolved. Additionally, previously demonstrated enlarged lymph nodes within the mediastinum and pulmonary amena are also normal in size today. There is no suspicious thoracic adenopathy. The findings suggest resolution of interstitial pulmonary edema with associated lymphatic engorgement. Mild centrilobular emphysema in the upper lobes. Normal caliber thoracic aorta. Limited images through the uppermost abdomen are unremarkable. IMPRESSION: 1. No acute abnormality within the chest. 2. Previous exam showed diffusely increased interstitial markings, engorged thoracic lymph nodes and tiny pleural effusions. Today, all of these findings have resolved. 3. Mild pulmonary emphysema. This report was finalized on 11/05/2015 10:[address] Bill Walker MD. Cesar Clarke MD IMG CT ORDERABLES Final Result * DEXA SCAN (04/24/2015) Dexa Scan Barb Nolasco 04/24/2015 [facility] Anatomical Region Laterality Modality Other Bianka Nolasco MD HEALTH MAINTENANCE Fi nal Result from Last 3 Months or Most Recently Relevant to Health Maintenance Insurance [employer] [place] Care Teams Diagrammer Relationship Specialty Start Date End Date Bianka Nolasco MD [address] [facility] [address] [place] [id number] PCP - General 10/24/15
--- OUTSIDE RECORDS SUMMARY | 2025-03-26 15:19 | XMS_ITS | Clinical Summary ---
Author Organization Healthcare Address [facility] [place] [address] Care Team Providers Care Wall Taper Helper Name Role Phone Svetlana Santana BARI Primary Care Provider [phone] Allergies Active Allergy Reactions Criticality Noted Date Comments Amlodipine Other - please docum ent in the comment field Low 12/23/2015 Leg swelling Penicillins Other - please docum ent in the comment field Low 10/03/2015 Medications cholecalciferol (Vitamin D-3) 50 MCG (1999 UT) capsule Take 2,000 Units by mouth. Active rosuvastatin (Crestor) 5 MG tablet Take 5 mg by mouth every night. Active FLUoxetine (PROzac) 20 MG tablet Take 20 mg by mouth 1 (one) time each day. Active amitriptyline (Elavil) 25 MG tablet Take by mouth every night. Active alendronate (Fosamax) 70 MG tablet Take 70 mg by mouth every 7 (seven) days. Take in the morning with a full glass of water, on an empty stomach, and do not take anything else by mouth or lie down for the next 30 min. Active aspirin 325 MG tablet Take 325 mg by mouth 1 (one) time each day. Active Coenzyme Q10 (CO Q 10 PO) Take by mouth. Active levothyroxine (Synthroid, Levoxyl) 75 MCG tablet Take 75 mcg by mouth 1 (one) time each day before breakfast. Active Active Problems Problem Noted Date Diagnosed Date Elevated parathyroid hormone 01/12/2023 Age-related osteoporosis wit hout current pathological fracture 01/12/2023 Family History Medical History Relation Name Comments Diabetes type II Other Relation Name Status Comments Other Social History Tobacco Use Types Packs/Day Years Used Date Smoking Tobacco: Former Cigarettes 1 40 Smokeless Tobacco: Never Tobacco Cessation:Counseling Given: Not Answered Alcohol Use Standard Drinks/Week Comments Not Currently 0 (1 standard drink = 0.6 oz pur e alcohol) Comments Unknown Sex and Gender Information Value Date Recorded Sex Assigned at Not on file Legal Sex Female 6:55 PM EDT Gender Identity Not on file Sexual Orientation Not on file Last Filed Vital Signs Vital Sign Reading Time Taken Comments Blood Pressure 147/87 01/12/2023 10:06 AM EDT Pulse 67 01/12/2023 10:06 AM EDT Temperature - - Respiratory Rate - - Oxygen Saturation - - Inhaled Oxygen Concentration - - Weight 86.1 kg (189 lb 13.1 oz) 023 10:06 AM EDT Height 157.5 cm (5' 2 ) 01/12/2023 10:0 6 AM EDT Body Mass Index 34.72 01/12/2023 10:06 AM EDT Plan of Treatment Health Maintenance Due Date Last Done Comments [facility]-Depression Screening 1954 [facility]-Infant/Child/Adol SDOH Screenings 1955 [facility]- SDOH Screenings 1972 [facility]-Adult SDOH Screenings 1972 [facility]-DTaP,Tdap,and Td Vaccines (1 - Tdap) 1973 CT Colonography 11/22/1999 Colonoscopy 11/22/1999 FIT-DNA 11/22/1999 FIT 11/22/1999 FOBT 11/22/1999 Sigmoidoscopy 11/22/1999 [facility]-Colorectal Cancer Screening 11/22/1999 [facility]-Pneumococcal Vaccine: 50+ Years (2 of 2 - PCV) 12/05/2016 12/06/2015 [facility]-Bone Density Scan 04/24/2017 04/24/2015 [facility]-Zoster Vaccines (2 of 2) 06/28/2018 05/03/2018 [id number] Vaccine ( - season) 2024 07/30/2021, 12/18/2020, 11/20/2020 [facility]-Influenza Vaccine (#1) 04/30/202504/23, 06/09/2021, 05/21/2020, Additional history exists [facility]-RSV Vaccine: 60+ Years or (1 - 1-dose 75+ series) 2029 [facility]-Breast Cancer Screening Discontinued 05/24/2017, 0 05/21/2016 HPV Vaccines Aged Out No longer eligi ble based on patient's age to complete this topic [facility]-HIB Vaccines Aged Out No longer e ligible based on patient's age to complete this topic [facility]-Hepatitis A Vaccines Aged Out No longer eligible based on patient's age to complete this topic [facility]-IPV Vaccines Aged Out No longer e ligible based on patient's age to complete this topic [facility]-Rotavirus Vaccines Aged Out No lo nger eligible based on patient's age to complete this topic Insurance [employer] Care Teams Wall Taper Helper Relationship Specialty Start Date End Date Svetlana Santana PA [address] [place] [address] PCP - General 01/12/23
--- NOTE | 2025-03-26 16:00 | MM_ITS ---
PROCEDURE INFORMATION: Exam: MG Bilateral Screening 3D Mammography Exam date and time: 03/26/2025 3:50 PM Age: 69 years old Clinical indication: Screening examination. TECHNIQUE: Imaging protocol: Bilateral Screening tomosynthesis and 2D mammography including computer-aided detection (CAD) when performed. COMPARISON: 1. MG MM DIG SCREENING MAMM BI W/CAD 10/23/2022 8:22 AM 2. MG MM DIG SCREENING MAMM BI W/CAD 11/04/2020 9:23 AM FINDINGS: MAMMOGRAPHY: Breast composition: There are scattered areas of fibroglandular density. Mass: None. Architectural distortion: None. Calcifications: No suspicious calcifications. Asymmetric density: None. Skin thickening: None. Axillary adenopathy: None. IMPRESSION: No mammographic evidence of malignancy. Annual screening is recommended unless otherwise clinically indicated. ASSESSMENT: BI-RADS Category 1: Negative.
== END 2025-03-26 23:59 | disposition home or self-care (01) ==
LOC: RAD 15:18
PROVIDERS: PCP Family Medicine; Visit Provider Family Medicine
DX: Z12.31 Encounter for screening mammogram for malignant neoplasm of breast (principal); R92.323 Mammographic fibroglandular density, bilateral breasts
CPT/HCPCS: 77063; 77067